=== PATIENT | female | born 2000 | race African-American/Black ===

== ENCOUNTER 2025-09-19 15:02 | Emergency (ER) | payer MEDICAID, OTHER ==
[~2025-09-19] VITALS: Ht 167.6 cm; Wt 109.9 kg
[2025-09-19 15:08] VITALS: BP 134/88; PULSE 71; RESP 14; TEMP 98.7; O2SAT 99
--- NOTE | 2025-09-19 15:37 | ED.PDOC ---
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 Patient reports that she has been experiencing vaginal spotting since yesterday, becoming heavier today and with associated mild abdominal cramping. Patient relays that her LMP was 08/21/25 and she is currently sexually active with no protection. Patient states she believed she was as she felt , but her last test on 09/09 came back negative. Patient denies any N/V/D, dysuria, hematuria, or abdominal pain. Chief Complaint: Vaginal Bleed Time Seen by MD: 15:35 Reviewed Notes: Nurses Notes, Medications, Allergies Allergies: Coded Allergies: NO KNOWN ALLERGIES (Unverified , 09/19/25) Mode of Arrival: Ambulatory Timing: Days Prehospital treatment: None Severity: Mild Bleeding Quality: Bright Red Onset Of Mass/Bleeding: Spontaneous Sexual Activity: Sexually Active Last Consensual [place]: Unknown Control: None Symptoms of Possible : Feels Past Medical History PAST MEDICAL HISTORY: Denies Surgical History: Denies all surgeries DIAMOND SANDER History: No Pertinent DIAMOND SANDER History Family History Family History: Reviewed,noncontributory to illness Social History Smoker: Non-Smoker Alcohol: Denies ETOH Use Drugs: Denies Drug Use Lives In: Home Constitutional: denies: chills, diaphoresis, fatigue, fever, malaise, sweats, weakness, others EENTM: denies: blurred vision, double vision, ear bleeding, ear discharge, ear drainage, ear pain, ear ringing, eye pain, eye redness, hearing loss, mouth pain, mouth swelling, nasal discharge, nose bleeding, nose congestion, nose pain, photophobia, tearing, throat pain, throat swelling, voice changes, others Respiratory: denies: cough, hemoptysis, orthopnea, SOB at rest, shortness of breath, SOB with excertion, stridor, wheezing, others Cardiovascular: denies: chest pain, dizzy spells, diaphoresis, Dyspnea on exer tion, edema, irregular heart beat, left arm pain, lightheadedness, palpitations, PND, syncope, others Gastrointestinal: denies: abdomen distended, abdominal pain, blood streaked bowels, constipated, diarrhea, dysphagia, difficulty swallowing, hematemesis, melena, nausea, poor appetite, poor fluid intake, rectal bleeding, rectal pain, vomiting, others Genitourinary: reports: abnormal vagina bleeding; denies: burning, dyspareunia, dysuria, flank pain, frequency, hematuria, incontinence, pain, , vagina discharge, urgency, others Neurological: denies: dizziness, fainting, headache, left sided numbness, left sided weakness, numbness, paresthesia, pre-existing deficit, right sided numbness, right sided weakness, seizure, speech problems, tingling, tremors, weakness, others Musculoskeletal: denies: back pain, gout, joint pain, joint swelling, muscle pain, muscle stiffness, neck pain, others Integumetry: denies: bruises, change in color, change in hair/nails, dryness, laceration, lesions, lumps, rash, wounds, others Allergic/Immunocompromised: denies: Difficulty Healing, Frequent Infections, Hives, Itching, others Hematologic/Lymphatic: denies: anemia, blood clots, easy bleeding, easy bruising, swollen glands, others Endocrine: denies: excessive hunger, excessive sweating, excessive thirst, excessive urination, flushing, intolerance to cold, intolerance to heat, unexplained weight gain, unexplained weight loss, others Psychiatric: denies: anxiety, bipolar disorder, depression, hopeless, panic disorder, schizophrenia, sleepless, suicidal, others All Other Systems: Reviewed and Negative Physical Exam General Appearance: No Apparent Distress, Normal HEENT: Normal ENT Inspection, Pharynx Normal, TMs Normal Neck: Full Range of Motion, Non-Tender, Normal, Normal Inspection Respiratory: Chest Non-Tender, Lungs Clear, No Accessory Muscle Use, No Respiratory Distress, Normal Breath Sounds Cardiovascular: No Edema, No JVD, No Murmur, No Gallop, Normal Peripheral Pulses, Regular Rate/Rhythm Breast Exam: Deferred Gastrointestinal: No Organomegaly, Non Tender, No Pulsatile Mass, Normal Bowel Sounds, Soft Genitalia: Deferred Pelvic: Deferred Rectal: Deferred Extremities: No calf tenderness, Normal capillary refill, Normal inspection, Normal range of motion, Non-tender, No pedal edema Musculoskeletal : Apperance: Normal 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 Was a procedure done?: No Differential Diagnosis (DIAMOND SANDER) Vaginal Bleeding: - Complete, Dysmenorrhea, Ectopic , Hormonal, Menorrhagia X-Ray, Labs, Meds, VS Vital Signs Date Time Temp Pulse Resp B/P (MAP) Pulse Ox O2 Delivery O2 Flow Rate FiO2 09/19/25 15:08 98.7 71 14 134/88 99 98.7 Lab Test 09/19/25 17:42 Range/Units Urine Color Colorless Yellow Urine Clarity Turbid H Clear Urine pH 7.0 5.0-9.0 Urine Specific [place] 1.018 1.001-1.035 Urine Protein Trace H Negative Urine Ketones Negative Negative Urine Blood 3+ H Negative /uL Urine Nitrite Negative Negative Urine Bilirubin Negative Negative Urine Urobilinogen Normal Negative mg/dL Urine Leukocyte Esterase 1+ Negative /uL Urine RBC 3221 0 - 4 /hpf Urine Microscopic WBC 17 H 0-5 /HPF Urine Squamous Epithelial Cells Few <5 /hpf Urine Bacteria None seen None Seen /hpf Urine Mucus Few None Seen Urine Glucose Normal Normal mg/dL Urine Test Negative Negative X-Ray, Labs, Meds, VS Comment IMAGING WAS REVIEWED BY THIS PROVIDER, THERE IS NO OBVIOUS PATHOLOGICAL OR ACUTE DISEASE PROCESS. PENDING RADIOLOGY REVIEW LABS WERE REVIEWED BY THIS PROVIDER, NO ABNORMALITIES VITAL SIGNS REVIEWED BY THIS PROVIDER, CLINICALLY STABLE Time of 1ST Reevaluation: 16:35 Reevaluation 1ST: Unchanged Patient Education/Counseling: Diagnosis, Treatment, Need For Follow Up (FOLLOW UP WITH PCP NEEDED.) Family Education/Counseling: No Family Present Departure 1 Departure Time of Disposition: 18:34 Impression: Primary Impression: Menstrual cycle problem Disposition: HOME / SELF CARE / HOMELESS Condition: Fair Discharged With: Self Critical Care Note Critical Care Time?: No Stability Stability form required: No Heart Score Heart Score: Heart Score Response (Comments) Value History N/A 0 EKG N/A 0 Age N/A 0 Risk Factors N/A 0 Troponin N/A 0 Total 0 I personally scribed for ASHANTI CARNEY ([email or web address]) on 09/19/25 at 15:37. Electronically submitted by Dean Pulido ([email or web address]). ASHANTI CARNEY Sep 19, 2025 15:37
[2025-09-19 18:30] LABS: Urine Protein, UAD TRACE (Negative)
[2025-09-20] MEDS ORDERED: IBUP-1455 PO (01:30)
== END 2025-09-19 18:35 | disposition home or self-care (01) ==
LOC: ER 15:02
DX: N93.9 Abnormal uterine and vaginal bleeding, unspecified (principal)
CPT/HCPCS: 81001; 81025